=== PATIENT | male | born 1990 | race African-American/Black ===

== ENCOUNTER 2020-07-31 21:23 | Emergency (ER) | payer SELFPAY ==
[~2020-07-31] VITALS: Ht 170.2 cm; Wt 75.0 kg
[2020-07-31] MEDS ORDERED: LORAZEPAM 2MG/ML CPJ IV ONE (22:30)
[2020-07-31] MEDS ORDERED: HALOPERIDOL LACTATE 5MG/ML VIAL IM ONE (22:30)
[2020-07-31 22:41] LABS: BASOPHILS % 0.5 % (0.0-2.0); EOSINOPHILS % 3.8 % (0.0-5.0); HEMATOCRIT. 39.5 % (42.0-52.0); HEMOGLOBIN. 13.7 g/dL (14.0-18.0); LYMPHOCYTES % 18.4 % (20.0-50.0); MEAN CORPUSCULAR HEMOGLOBIN 31.5 pg (28.0-32.0); MEAN CORPUSCULAR VOLUME 90.9 fL (80.0-94.0); MEAN PLATELET VOLUME 7.8 fl (7.4-10.4); MONOCYTES % 7.4 % (2.0-8.0); NEUTROPHILS % 69.9 % (40.0-76.0); PLATELET 262 x1000/uL (130-400); RED BLOOD CELL COUNT 4.35 mill/uL (4.7-6.1)
[2020-07-31 22:45] LABS: CHLORIDE 108 mEq/L (98-107)
[2020-07-31] MEDS ORDERED: LORAZEPAM 2MG/ML CPJ IV NR (22:45)
[2020-07-31] MEDS ORDERED: HALOPERIDOL LACTATE 5MG/ML VIAL IM NR (22:45)
[2020-07-31 22:49] LABS: ETHANOL BLOOD < 10 mg/dL
[2020-08-01 01:13] LABS: *AMPHETAMINES SCREEN URINE PRESUMTIVE POSITIVE (NEGATIVE); *BARBITURATES SCREEN URINE NEGATIVE (NEGATIVE); *BENZODIAZEPINES SCREEN URINE NEGATIVE (NEGATIVE); *COCAINE SCREEN URINE NEGATIVE (NEGATIVE); METHADONE URINE SCREEN NEGATIVE (NEGATIVE)
[2020-08-01 01:14] LABS: CANNABINOID URINE SCREEN PRESUMTIVE POSITIVE (NEGATIVE); OPIATES URINE SCREEN NEGATIVE (NEGATIVE); PHENCYCLIDINE URINE SCREEN NEGATIVE (NEGATIVE)
[2020-08-01 04:00] VITALS: BP 122/71
== END 2020-08-01 06:15 | disposition home or self-care (01) ==
LOC: ER 21:23
DX: F15.159 Other stimulant abuse with stimulant-induced psychotic disorder, unspecified (principal); F12.10 Cannabis abuse, uncomplicated; R45.1 Restlessness and agitation; R74.01 Elevation of levels of liver transaminase levels; D72.829 Elevated white blood cell count, unspecified; R03.0 Elevated blood-pressure reading, without diagnosis of hypertension; Z71.51 Drug abuse counseling and surveillance of drug abuser
CPT/HCPCS: 36415; 80048; 80076; 80305; 80307; 80320; 80329; 85025; 96372; 96374; 99285; J1630; J2060; Z7610; G0480